=== PATIENT | male | born 1995 | race Hispanic/Latino ===

== ENCOUNTER 2017-09-17 11:26 | Emergency (ER) | payer OTHER ==
[2017-09-17] MEDS ORDERED: ISOVUE-370 76% 100ML VIAL (Q9967) As Ordered (14:08)
[2017-09-17] MEDS: PERCOCET 5MG/325MG TAB PO (14:09)
[2017-09-17] MEDS: LIDOCAINE 1% MDV 20ML VIAL IM (15:28)
== END 2017-09-17 16:28 | disposition home or self-care (01) ==
LOC: M ED 11:26
DX: L03.211 Cellulitis of face (principal); F17.210 Nicotine dependence, cigarettes, uncomplicated
CPT/HCPCS: Q9967